=== PATIENT | male | born 1985 | race Caucasian/White ===

== ENCOUNTER → 2024-02-09 | Outpatient (CLI) | payer OTHER ==
--- NOTE | 2024-02-09 14:02 | US ---
EXAMINATION TYPE: US groin LT DATE OF EXAM: 02/09/2024 COMPARISON: NONE CLINICAL INDICATION: Male, 38 years old with history of K40.90 UNIL INGUINAL HERNIA, W/O OBST OR GANG R, NO; Pain in left groin x 1.5 years. Patient does a lot of heavy lifting. TECHNIQUE: Scanned left groin. Grayscale and color Doppler imaging of the left groin FINDINGS: Question possible hypoechoic defect in left groin with anterior movement upon valsalva man euver: 1.1 x 2.2 cm. IMPRESSION: Left groin and suspected hernia containing fat. No bowel identified. Consider confirmatio n with CT[facility], , 02/09/2024 1:59 PM
== END | disposition home or self-care (01) ==
LOC: RADUSWWP 13:00
PROVIDERS: ATTEND Family Medicine
DX: K40.90 Unilateral inguinal hernia, without obstruction or gangrene, not specified as recurrent (principal)